=== PATIENT | male | born 1935 | race Caucasian/White ===

== ENCOUNTER 2018-10-29 14:01 | Inpatient (IN) | payer OTHER ==
[~2018-10-29] VITALS: Ht 188 cm; Wt 90.7 kg
[~2018-10-29 14:01] MED LIST: ARICEPT10 MG; CEFADROXIL500 MG PO; CLONAZEPAM1 GM; CLOPIDOGREL BIS75 MG; COZAAR50 MG; DULOXETINE HCL60 MG; FAMOTIDINE40 MG; INTESTINEX680 MG; MYSOLINE250 MG; NEUPRO1 EACH; NORVASC5 MG; POLY119PG; STALEVO 100 TAB1 TAB; SUPER B W/C1 CAP
--- NOTE | 2018-10-29 14:01 | NUR ---
SE RECIBE PACIENTE EN AMBULANCIA ALERTA. FAMILIAR REFIERE TRAER AL FAMILIAR POR ASPIRACION EN EL HOGAR DONDE LO CUIDAN. SE MIDEN VITALES, PACIENTE SATURANDO OXIGENO EN 88%. SE UBICA EN UNIDAD DE CRITICO SE PRESENTA A MIS. ANASTASIIA GILL DEL AREA Y SE PRESENTO A DR. JAVED. SE CONECTA A MONITOR CARDIACO Y OXIMERIA DE PULSO. SE COLOCA CANULA NASAL A 3 LITROS. SE NOTIFICA A PERSONAL DE TERAPIA RESPIRATORIA SOBRE ABG'S Y TERAPIAS DE XOPENEX ORDENADA POR .
--- NOTE | 2018-10-29 14:52 | NUR ---
SE RECIBE PTE EN AMBULANCIA DE 82 YRS CON DIFICULTAD RESPIRATORIA Y SATURANDO 91 % SE ACOMODA EN CAMA EN LA UNIDAD DE CRITICO DE LA SUSHIL DE EMERGENCIA SE CONECTA A MONITOR CARDIACO Y OXIMENTRIA. ES EVALUADO POR EL TELLO MELÉNDEZ QUIEN DA ORDEN MEDICA. SE OBSERVA POR CAMBIOS.
--- NOTE | 2018-10-29 15:16 | NUR ---
SE RECIBE MASCULINO ALERTA E HIPOACTIVO EN CAMA CON BARANDAS SEURAS Y ELEVADAS. CONECTADO A MONITOR CARDIACO CON OXIMETRIA DE PULSO. ASISTIDO POR VENTURY MASK AL 40%. AREA DE VENOPUNCIONES LIBRES DE EDEMA O ENROJECIMIENTO. SE MANTIENE EN OBSERVACION POR CAMBIOS.
[2018-11-26] MEDS ORDERED: MYSOLINE50 MG PO (16:10)
== END 2018-11-26 19:25 | disposition home or self-care (01) | DRG 177 ==
LOC: ER 14:01 → ICU 21:26 → ICU-2 21:26 → MEDJ 21:26 → ICU 10-30 02:12 → MEDI 11-01 17:01 → MEDJ 11-18 18:29
PROVIDERS: ADMIT Internal Medicine
PROC: 3E0336Z Introduction of Nutritional Substance into Peripheral Vein, Percutaneous Approach (ICD-10-PCS; principal; 2018-10-29)
PROC: 4A033R1 Measurement of Arterial Saturation, Peripheral, Percutaneous Approach (ICD-10-PCS; 2018-10-29)
PROC: 3E0F7GC Introduction of Other Therapeutic Substance into Respiratory Tract, Via Natural or Artificial Opening (ICD-10-PCS; 2018-10-29)
PROC: 0T9B70Z Drainage of Bladder with Drainage Device, Via Natural or Artificial Opening (ICD-10-PCS; 2018-10-29)
PROC: 4A12X4Z Monitoring of Cardiac Electrical Activity, External Approach (ICD-10-PCS; 2018-11-01)
PROC: BW24ZZZ Computerized Tomography (CT Scan) of Chest and Abdomen (ICD-10-PCS; 2018-11-06)
PROC: B246ZZZ Ultrasonography of Right and Left Heart (ICD-10-PCS; 2018-11-06)
PROC: B54DZZZ Ultrasonography of Bilateral Lower Extremity Veins (ICD-10-PCS; 2018-11-07)
PROC: BW21Y0Z Computerized Tomography (CT Scan) of Abdomen and Pelvis using Other Contrast, Unenhanced and Enhanced (ICD-10-PCS; 2018-11-08)
PROC: CW1N1ZZ Planar Nuclear Medicine Imaging of Whole Body using Technetium 99m (Tc-99m) (ICD-10-PCS; 2018-11-10)
PROC: 0DH63UZ Insertion of Feeding Device into Stomach, Percutaneous Approach (ICD-10-PCS; 2018-11-23)
PROC: 3E0G76Z Introduction of Nutritional Substance into Upper GI, Via Natural or Artificial Opening (ICD-10-PCS; 2018-11-23)
DX: J69.0 Pneumonitis due to inhalation of food and vomit (principal); J80 Acute respiratory distress syndrome; A41.9 Sepsis, unspecified organism; B37.1 Pulmonary candidiasis; C18.8 Malignant neoplasm of overlapping sites of colon; N39.0 Urinary tract infection, site not specified; J90 Pleural effusion, not elsewhere classified; I01.1 Acute rheumatic endocarditis; E44.0 Moderate protein-calorie malnutrition; A04.72 Enterocolitis due to Clostridium difficile, not specified as recurrent; I82.4Z3 Acute embolism and thrombosis of unspecified deep veins of distal lower extremity, bilateral; T17.228A Food in pharynx causing other injury, initial encounter; I25.10 Atherosclerotic heart disease of native coronary artery without angina pectoris; G30.0 Alzheimer's disease with early onset; F02.80 Dementia in other diseases classified elsewhere, unspecified severity, without behavioral disturbance, psychotic disturbance, mood disturbance, and anxiety; Z74.01 Bed confinement status; D72.828 Other elevated white blood cell count; G25.0 Essential tremor; I11.9 Hypertensive heart disease without heart failure; G20 Parkinson's disease; R13.19 Other dysphagia; B96.1 Klebsiella pneumoniae [K. pneumoniae] as the cause of diseases classified elsewhere; R31.0 Gross hematuria; E87.6 Hypokalemia; K56.41 Fecal impaction; N40.0 Benign prostatic hyperplasia without lower urinary tract symptoms; K44.9 Diaphragmatic hernia without obstruction or gangrene; I87.2 Venous insufficiency (chronic) (peripheral); B95.2 Enterococcus as the cause of diseases classified elsewhere

== ENCOUNTER 2019-03-08 09:29 | Inpatient (IN) | payer OTHER ==
[~2019-03-08] VITALS: Ht 190.5 cm; Wt 84.8 kg
[~2019-03-08 09:29] MED LIST changes: +MYSOLINE50 MG PO
--- NOTE | 2019-03-08 09:35 | NUR ---
SE RECIBE PTE EN AMBULANCIA DESORIENTADO ACOMAPANADO DEFAMILIAR EL CUAL REFIERE VENIR POR TUBO PEG FUERA DE LUGAR. FAMILIAR REFIERE PTE AL MOMENTO E ENCUENTRA AGRESIVO DESDE HACE VARIOS VARGHESE. SE MIDEN S/V A PTEY SEACOMODA EN OBSERVACION.
--- NOTE | 2019-03-08 10:07 | NUR ---
PACIENTE ALERTA Y DESORIENTADO EN SHANTELL DAVE ESFERAS, EN COMPANIA DE MINAYA HIJO QUIEN ES ORIENTADO SOBRE ORDENES MEDICAS, REFIERE ENTENDER. SE ADMINISTRAN MEDICAMENTOS EN GLUTEO RT.
--- NOTE | 2019-03-08 10:56 | NUR ---
SE TRASLADA PACIENTE AL AREA DE TRAUMA PARA REALIZAR CAMBIO DE GASTROSTOMIA TUBE POR EL DR.LOPEZ JOHNSON.REALIZA PROCEDIMIENTO Y ORDENA QUE SE REALIZA CHRISTY PLACA PARA CONFIRMAR TUBO CON CONTRASTE SE NOTIFICA AL PERSONAL CENTRO DE IMAGENES.
--- NOTE | 2019-03-08 18:41 | NUR ---
SE RECIBE PACIENTE DE TURNO ANTERIOR,EM CAMA CON LAS BARANDAS ELEVADAS. ACOMPANADO POR FAMILIAR.AREA DE VENOPUNCION ESTA LIMPIA Y SECA AMBROSE DE EDEMA. PENDINTE EVALUACION CON CONSULTOR.PACIENTE Y FAMILIARES SON ORIENTADO SOBRE PROCEDIMIENTOS A LLEVARSE A CABO,LO CUAL REFIERE COMPRENDER.
--- NOTE | 2019-03-09 02:44 | NUR ---
PACIENTE ALERTA Y DESORIENTADO X3 EN CAMA CON BARANDAS ELEVADAS Y CABEZERA A 45 GRADOS EN CAMA CON BARANDAS ELEVADAS. AREA DE VENOPUNCION PATENTE Y AMBROSE DE EDEMA BAJANDO MEDICAMENTOS ORDENADOS. PACIENTE ESTABLE SE MANTIENE BAJO OBSERVACION.
--- NOTE | 2019-03-09 07:08 | NUR ---
SE RECIBE PACIENTE ALERTA Y DESORIENTADO X 3. PACIENTE EN CAMA CON BARRANDAS ELEVADAS POR MINAYA SEGURIDAD. EN COMPANIA DE FAMILIAR, PACIENTE CON VENOPUNCION PATENTE AMBROSE DE EDEMA Y ERRITEMA CON .9NSS BAJANDO A 125 ML/HR. SE [place] A PACIENTE EN CAMA BAJO OBSERVACION POR CAMBIOS EN MINAYA CONDICION.
== END 2019-03-22 17:38 | disposition home or self-care (01) | DRG 393 ==
LOC: ER 09:29 → MEDJ 03-09 12:49 → SURG 03-09 12:49 → MEDJ 03-12 17:30
PROVIDERS: ADMIT Internal Medicine
PROC: 0DP68UZ Removal of Feeding Device from Stomach, Via Natural or Artificial Opening Endoscopic (ICD-10-PCS; principal; 2019-03-09)
PROC: 3E0F7GC Introduction of Other Therapeutic Substance into Respiratory Tract, Via Natural or Artificial Opening (ICD-10-PCS; 2019-03-10)
PROC: 4A033R1 Measurement of Arterial Saturation, Peripheral, Percutaneous Approach (ICD-10-PCS; 2019-03-10)
PROC: 0DH67UZ Insertion of Feeding Device into Stomach, Via Natural or Artificial Opening (ICD-10-PCS; 2019-03-12)
PROC: 3E0G76Z Introduction of Nutritional Substance into Upper GI, Via Natural or Artificial Opening (ICD-10-PCS; 2019-03-12)
PROC: BW21ZZZ Computerized Tomography (CT Scan) of Abdomen and Pelvis (ICD-10-PCS; 2019-03-13)
PROC: BB24ZZZ Computerized Tomography (CT Scan) of Bilateral Lungs (ICD-10-PCS; 2019-03-13)
PROC: 0DH63UZ Insertion of Feeding Device into Stomach, Percutaneous Approach (ICD-10-PCS; 2019-03-19)
PROC: 3E0G76Z Introduction of Nutritional Substance into Upper GI, Via Natural or Artificial Opening (ICD-10-PCS; 2019-03-19)
DX: K94.23 Gastrostomy malfunction (principal); J69.0 Pneumonitis due to inhalation of food and vomit; E44.0 Moderate protein-calorie malnutrition; T17.898A Other foreign object in other parts of respiratory tract causing other injury, initial encounter; E87.6 Hypokalemia; G20 Parkinson's disease; R13.19 Other dysphagia; E86.0 Dehydration; E87.8 Other disorders of electrolyte and fluid balance, not elsewhere classified; I25.10 Atherosclerotic heart disease of native coronary artery without angina pectoris; I10 Essential (primary) hypertension; B96.29 Other Escherichia coli [E. coli] as the cause of diseases classified elsewhere; K57.30 Diverticulosis of large intestine without perforation or abscess without bleeding; K43.9 Ventral hernia without obstruction or gangrene; Z74.01 Bed confinement status

== ENCOUNTER 2019-07-19 15:52 | Inpatient (IN) | payer OTHER ==
[~2019-07-19] VITALS: Ht 190.5 cm; Wt 97.5 kg
--- NOTE | 2019-07-19 15:57 | NUR ---
PACIENE MASCULINO ALERTA CUIDADO EN UN HOGAR, EL MISMO SE LE REMOVIO LA GASTROSTOMIA.
[2019-07-19] MEDS ORDERED: ARICEPT10 MG PO (16:15)
[2019-07-19] MEDS ORDERED: AMLODIPINE-OLM1 EACH PO (16:15)
[2019-07-19] MEDS ORDERED: RISPERDAL1 MG PO ×2 (16:16→16:17)
[2019-07-19] MEDS ORDERED: TRAZODONE HCL100 MG PO (16:16)
[2019-07-19] MEDS ORDERED: ELIQUIS5 MG PO (16:16)
[2019-07-19] MEDS ORDERED: COZAAR50 MG PO (16:17)
--- NOTE | 2019-07-19 17:21 | NUR ---
PACIENTE MASCULINO ALERTA, DR. CORADO AL MOMENTO DE INSERTAR TUBOS DE GASTROSTOMIA #24 NO SE PUDO YA QUE EL ORIFICIO ESTA CERRADO. DR. CORADO CONSULTO EL ALLISON.
[2019-07-26] MEDS ORDERED: LOSARTAN POTASS50 MG PO (13:23)
[2019-07-26] MEDS ORDERED: LUBRIDERM DAIL177 ML TOP (13:23)
[2019-07-26] MEDS ORDERED: INTESTINEX680 M1 PO (13:23)
[2019-07-26] MEDS ORDERED: TRAZODONE HCL50 MG PO (13:23)
[2019-07-26] MEDS ORDERED: MYSOLINE50 MG PO (13:23)
[2019-07-26] MEDS ORDERED: AMLODIPINE BESYL5 MG PO (13:23)
[2019-07-26] MEDS ORDERED: RISPERDAL1 MG PO (13:23)
[2019-07-26] MEDS ORDERED: ARICEPT10 MG PO (13:23)
== END 2019-07-26 19:08 | disposition home or self-care (01) | DRG 394 ==
LOC: ER 15:52 → SURG 18:19 → SURH 07-22 11:27
PROVIDERS: ADMIT Internal Medicine
PROC: 0T9B70Z Drainage of Bladder with Drainage Device, Via Natural or Artificial Opening (ICD-10-PCS; 2019-07-20)
PROC: 0D20XUZ Change Feeding Device in Upper Intestinal Tract, External Approach (ICD-10-PCS; principal; 2019-07-22)
PROC: 8E0ZXY6 Isolation (ICD-10-PCS; 2019-07-22)
DX: Z43.1 Encounter for attention to gastrostomy (principal); I82.5Z2 Chronic embolism and thrombosis of unspecified deep veins of left distal lower extremity; N39.0 Urinary tract infection, site not specified; G20 Parkinson's disease; F02.80 Dementia in other diseases classified elsewhere, unspecified severity, without behavioral disturbance, psychotic disturbance, mood disturbance, and anxiety; I25.10 Atherosclerotic heart disease of native coronary artery without angina pectoris; R31.0 Gross hematuria; I10 Essential (primary) hypertension; I48.0 Paroxysmal atrial fibrillation; R13.19 Other dysphagia; N39.8 Other specified disorders of urinary system; Z79.01 Long term (current) use of anticoagulants; Z74.01 Bed confinement status

== ENCOUNTER 2020-02-02 11:51 | Emergency (ER) | payer OTHER ==
[~2020-02-02] VITALS: Ht 182.9 cm; Wt 54.4 kg
[~2020-02-02 11:51] MED LIST changes: +AMLODIPINE BESYL5 MG PO; +AMLODIPINE-OLM1 EACH PO; +ARICEPT10 MG PO; +COZAAR50 MG PO; +ELIQUIS5 MG PO; +INTESTINEX680 M1 PO; +LOSARTAN POTASS50 MG PO; +LUBRIDERM DAIL177 ML TOP; +RISPERDAL1 MG PO; +TRAZODONE HCL100 MG PO; +TRAZODONE HCL50 MG PO
== END 2020-02-02 23:03 | disposition home or self-care (01) ==
LOC: ER 11:51
DX: I95.89 Other hypotension (principal); Z03.818 Encounter for observation for suspected exposure to other biological agents ruled out; R05 Cough; G30.8 Other Alzheimer's disease; F02.80 Dementia in other diseases classified elsewhere, unspecified severity, without behavioral disturbance, psychotic disturbance, mood disturbance, and anxiety; Z74.01 Bed confinement status